=== PATIENT | female | born 1970 | race Two or more races ===

== ENCOUNTER 2020-03-27 09:56 | Outpatient (CLI) | payer OTHER | END 2020-03-27 23:59 | disposition home or self-care (01) | LOC: CFH 09:56 | PROVIDERS: ATTEND Physician Assistant Medical | DX: Z12.31 Encounter for screening mammogram for malignant neoplasm of breast (principal); M47.816 Spondylosis without myelopathy or radiculopathy, lumbar region; M41.86 Other forms of scoliosis, lumbar region; M54.5 Low back pain; M25.551 Pain in right hip | CPT/HCPCS: 72100; 72202; 77067 ==